=== PATIENT | male | born 1960 | race African-American/Black ===

== ENCOUNTER → 2019-08-01 | Outpatient (CLI) | payer OTHER ==
[~2019-08-01] MED LIST: OMNIPAQUE 350 MG/ML, 100ML BOTTLE ONE
== END | disposition home or self-care (01) ==
LOC: CFH 12:28
PROVIDERS: ATTEND Genetic Counselor, MS
DX: K40.90 Unilateral inguinal hernia, without obstruction or gangrene, not specified as recurrent (principal); J84.10 Pulmonary fibrosis, unspecified; M51.36 Other intervertebral disc degeneration, lumbar region; M47.816 Spondylosis without myelopathy or radiculopathy, lumbar region
CPT/HCPCS: 74177; Q9967

== ENCOUNTER 2019-09-22 13:25 | Outpatient (CLI) | payer OTHER ==
[2019-09-22] MEDS ORDERED: MULT-658 PO (14:07)
[2019-09-22] MEDS ORDERED: Inhaler INH (14:07)
[2019-09-22] MEDS ORDERED: MONT10TA6 PO (14:07)
[2019-09-22 14:29] LABS: BASOPHILS % (AUTO) 0 % (0-1); EOSINOPHILS # (AUTO) 0.58 x10^3/uL (0-0.4); EOSINOPHILS % (AUTO) 11 % (1-7); LYMPHOCYTES # (AUTO) 1.85 x10^3/uL (1-3.4); LYMPHOCYTES % (AUTO) 34 % (22-44); MD NO; MEAN CORPUSCULAR HEMOGLOBIN 31.7 pg (27.5-34.5); MEAN CORPUSCULAR HGB CONC 33.1 g/dL (33.2-36.2); MEAN CORPUSCULAR VOLUME 95.7 fL (81-97); MEAN PLATELET VOLUME 8.6 fL (7.4-10.4); MONOCYTES # (AUTO) 0.37 x10^3/uL (0.2-0.8); MONOCYTES % (AUTO) 7 % (2-9); NEUTROPHILS # (AUTO) 2.72 x10^3/uL (1.8-6.8); NEUTROPHILS % (AUTO) 49 % (42-75); PLATELET COUNT 173 x10^3/uL (130-400); RED BLOOD COUNT 4.51 x10^6/uL (4.38-5.82); RED CELL DISTRIBUTION WIDTH 13.5 % (9.4-14.8)
[2019-09-22 14:41] LABS: ANION GAP 5 mmol/L (5-15); CALCIUM 9.2 mg/dL (8.5-10.1); CHLORIDE 109 mmol/L (98-107); CREATININE 1.23 mg/dL (0.7-1.3)
[2019-09-26] MEDS ORDERED: BUPIVACAINE/EPI 0.5% 1:200K ONE (14:32)
== END 2019-09-22 23:59 | disposition home or self-care (01) ==
LOC: STAR 13:25
PROVIDERS: ATTEND Surgery
DX: Z01.818 Encounter for other preprocedural examination (principal); K40.90 Unilateral inguinal hernia, without obstruction or gangrene, not specified as recurrent
CPT/HCPCS: 36415; 80048; 85025; 93005

== ENCOUNTER 2019-09-26 13:39 | Day surgery (SDC) | payer OTHER ==
[~2019-09-26] VITALS: Ht 185.4 cm; Wt 113.0 kg
[~2019-09-26 13:39] MED LIST changes: +Inhaler INH; +MONT10TA6 PO; +MULT-658 PO; -OMNIPAQUE 350 MG/ML, 100ML BOTTLE ONE
[2019-09-26] MEDS ORDERED: BUPIVACAINE/EPI 0.5% 1:200K ONE (14:32)
[2019-09-26] MEDS ORDERED: LACTATED RINGERS 1,000 ML IV SCH (14:37)
[2019-09-26] MEDS ORDERED: ACETAMINOPHEN 500 MG TABLET ONE (14:43)
[2019-09-26] MEDS ORDERED: GABAPENTIN 300 MG CAPSULE ONE (14:43)
[2019-09-26] MEDS ORDERED: ACETAMINOPHEN 500 MG TABLET PO ONE (15:00)
[2019-09-26] MEDS ORDERED: CHLORHEXIDINE 15 ML UDC MM ONE (15:00)
[2019-09-26] MEDS ORDERED: GABAPENTIN 300 MG CAPSULE PO ONE (15:00)
[2019-09-26] MEDS ORDERED: FENTANYL PF 250 MCG/5ML ONE (15:04)
[2019-09-26] MEDS ORDERED: MIDAZOLAM 1 MG/ML, 2ML ONE (15:04)
[2019-09-26] MEDS ORDERED: CEFAZOLIN 1,000 MG ONE (15:05)
[2019-09-26] MEDS ORDERED: GLYCOPYRROLATE 0.2MG/1ML, 5ML ONE (15:05)
[2019-09-26] MEDS ORDERED: ROCURONIUM 10MG/ML,5ML ONE (15:05)
[2019-09-26] MEDS ORDERED: PROPOFOL 10 MG/ML, 20ML ONE (15:05)
[2019-09-26] MEDS ORDERED: NEOSTIGMINE 1 MG/ML, 10ML ONE (15:05)
[2019-09-26] MEDS ORDERED: KETOROLAC 30 MG/1 ML ONE (15:26)
[2019-09-26] MEDS ORDERED: BUPIVACAINE/PF-EPI 0.5% 1:200K INFIL ONE (15:28)
[2019-09-26] MEDS ORDERED: FENTANYL PF 100 MCG/2ML IV PRN (15:30)
[2019-09-26] MEDS ORDERED: hydrALAzine 20 MG/ML, 1ML IV PRN (15:30)
[2019-09-26] MEDS ORDERED: ONDANSETRON 2MG/ML, 2ML IVPush PRN (15:30)
[2019-09-26] MEDS ORDERED: MEPERIDINE/PF 25MG/0.5ML IVPush PRN (15:30)
[2019-09-26] MEDS ORDERED: LABETALOL 5MG/ML, 20ML IV PRN (15:30)
[2019-09-26] MEDS ORDERED: morphine SULFATE 10 MG/ML, 1ML IVPush PRN (15:30)
[2019-09-26] MEDS ORDERED: HYDROmorphone 1 MG/ML, 1ML INJ IVPush PRN (15:30)
[2019-09-26] MEDS ORDERED: SUGAMMADEX 200 MG/2 ML IVPush ONE (15:52)
== END 2019-09-26 19:05 | disposition home or self-care (01) ==
LOC: OR 13:39
PROVIDERS: ATTEND Surgery
DX: K40.90 Unilateral inguinal hernia, without obstruction or gangrene, not specified as recurrent (principal); Z11.59 Encounter for screening for other viral diseases; J45.909 Unspecified asthma, uncomplicated; E66.3 Overweight; Z88.8 Allergy status to other drugs, medicaments and biological substances; Z79.899 Other long term (current) drug therapy; Z68.32 Body mass index [BMI] 32.0-32.9, adult
CPT/HCPCS: 36415; 49505; 87635; C1781; J0690; J1885; J2250; J2704; J2710; J3010; J7120